=== PATIENT | male | born 1955 | race American Indian/Alaskan Native ===

== ENCOUNTER 2017-06-15 11:50 | Emergency (ER) | payer OTHER ==
[2017-06-15 13:19] LABS: Bacteria,Urine 1+ /HPF (Negative); Bilirubin,Urine NEG (Negative); Blood,Urine LG (Negative); Ketones,Urine NEG (Negative); Leukocyte Esterase,Urine NEG (Negative); Mucus,Urine FEW /HPF; Nitrite,Urine NEG (Negative); Protein,Urine <15 mg/dL mg/dL (Negative); Urobilinogen,Urine < 2.0 mg/dL (<2.0)
[2017-06-15 14:11] LABS: Basophils % (Auto) 0.5 % (0.0-1.8); Eosinophils % (Auto) 0.2 % (0.0-4.3); Hematocrit 47.1 % (35.5-45.6); Hemoglobin 15.2 gm/dl (11.8-15.2); Mean Corpuscular HGB Conc 32 % (32-34); Mean Corpuscular Hemoglobin 28 pg (28-32); Mean Corpuscular Volume 86 fl (84-94); Platelet Count 208 K/mm3 (140-440); Red Blood Count 5.51 M/mm3 (3.65-5.03); Red Cell Distribution Width 14.7 % (13.2-15.2); White Blood Count 15.5 K/mm3 (4.5-11.0)
--- NOTE | 2017-06-15 14:16 | Emergency Department Report ---
ED Male HPI - General Chief complaint: Abdominal Pain Stated complaint: ENLARGED PROSTATE Time Seen by Provider: 06/15/17 13:35 Source: patient, EMS Mode of arrival: Stretcher Limitations: No Limitations - History of Present Illness Initial comments: 61 year old male with a past medical history of enlarged prostate and hepatitis presents to the hospital with complaints of inability to urinate times a hours and superpubic abdominal pain. Similar history of urinary retention one year ago. Patient states he is compliant with his Flomax but took his last dose 6 hours late. Patient also states he is under a lot of stress lately and thinks that that has contributed to his retention. Patient's pain was 10/10 intensity described as a pressure prior to to my evaluation. Greene catheter was placed by RN with initial output of 1000 mL of urine. Patient now reports improvement in symptoms. In the past patient has been seen by Dr. Hawkins but his group no longer accepts his insurance - Related Data Home Medications Medication Instructions Recorded Confirmed Last Taken No Known Home Medications [No 07/03/16 07/03/16 Unknown Reported Home Medications] Allergies Allergy/AdvReac Type Severity Reaction Status Date / Time No Known Allergies Allergy Unverified 07/03/16 11:35 ED Review of Systems ROS: Stated complaint: ENLARGED PROSTATE Other details as noted in HPI Comment: All other systems reviewed and negative Other: Constitutional: No fevers chills Eyes: No eye pain visual changes ENT: No ear pain or throat pain Neck: Denies pain Respiratory: Denies cough wheezing shortness of breath Cardiovascular: Denies chest pain, palpitations, syncope GI: Denies nausea, vomiting, diarrhea : as per hpi Musculoskeletal: Denies back pain, joint swelling Skin: Denies rash, lesions, erythema Neurologic: Denies headache, numbness, weakness Psychiatric: Denies suicidal ideation, hallucinations ED Past Medical Hx - Past Medical History Previous Medical History?: Yes Additional medical history: Enlarged Prostate, Hepatitis - Surgical History Past Surgical History?: Yes Additional Surgical History: Right knee surgery,. Rectal/anal surgery performed by Dr. Pedraza in 2013 for "ingrown infected hair" - Social History Smoking Status: Never Smoker Substance Use Type: None - Medications Home Medications: Home Medications Medication Instructions Recorded Confirmed Last Taken Type No Known Home Medications [No 07/03/16 07/03/16 Unknown History Reported Home Medications] ED Physical Exam - General Limitations: No Limitations - Other Other exam information: General: No limitations, patient is alert in no acute distress Head exam: Atraumatic, normocephalic Eyes exam: Normal appearance ENT: Moist mucous membrane, normal oropharynx Neck exam: Normal inspection, full range of motion, no meningismus nontender Respiratory exam: Clear to auscultation bilateral, no wheezes, rales, crackles Cardiovascular: Normal rate and rhythm, normal heart sounds Abdomen: Soft, nondistended, and nontender (after greene placement), with normal bowel sounds, no rebound, or guarding : Circumcised, no penile testicular tenderness. Extremity: Full range of motion normal inspection no deformity Back: Normal Inspection, full range of motion, no tenderness Neurologic: Alert, oriented x3, cranial nerves intact, no motor or sensory deficit Psychiatric: normal affect, normal mood Skin: Warm, dry, intact ED Course Vital Signs 06/15/17 06/15/17 06/15/17 11:54 12:00 12:15 Temperature 97.9 F Pulse Rate 114 H Respiratory 19 Rate Blood Pressure 136/79 137/77 Blood Pressure [Left] O2 Sat by Pulse 97 99 98 Oximetry 06/15/17 06/15/17 12:30 12:51 Temperature Pulse Rate 82 Respiratory Rate Blood Pressure 137/77 Blood Pressure 153/76 [Left] O2 Sat by Pulse 97 Oximetry ED Medical Decision Making - Lab Data Result diagrams: 06/15/17 13:54 06/15/17 13:54 Lab Results 06/15/17 06/15/17 06/15/17 Range/Units 12:25 13:54 13:54 WBC 15.5 H (4.5-11.0) K/mm3 RBC 5.51 H (3.65-5.03) M/mm3 Hgb 15.2 (11.8-15.2) gm/dl Hct 47.1 H (35.5-45.6) % MCV 86 (84-94) fl MCH 28 (28-32) pg MCHC 32 (32-34) % RDW 14.7 (13.2-15.2) % Plt Count 208 (140-440) K/mm3 Lymph % (Auto) 5.7 L (13.4-35.0) % [place] % (Auto) 6.2 (0.0-7.3) % Eos % (Auto) 0.2 (0.0-4.3) % Baso % (Auto) 0.5 (0.0-1.8) % Lymph # 0.9 L (1.2-5.4) K/mm3 [place] # 1.0 H (0.0-0.8) K/mm3 Eos # 0.0 (0.0-0.4) K/mm3 Baso # 0.1 (0.0-0.1) K/mm3 Seg Neutrophils % 87.4 H (40.0-70.0) % Seg Neutrophils # 13.6 H (1.8-7.7) K/mm3 Sodium 138 (137-145) mmol/L Potassium 4.0 (3.6-5.0) mmol/L Chloride 99.8 (98-107) mmol/L Carbon Dioxide 24 (22-30) mmol/L Anion Gap 18 mmol/L BUN 8 L (9-20) mg/dL Creatinine 1.0 (0.8-1.5) mg/dL Estimated GFR > 60 ml/min BUN/Creatinine Ratio 8 % Glucose 90 (75-100) mg/dL Calcium 9.6 (8.4-10.2) mg/dL Urine Color Yellow (Yellow) Urine Turbidity Clear (Clear) Urine pH 5.0 (5.0-7.0) Ur Specific [place] 1.011 (1.003-1.030) Urine Protein <15 mg/dl (Negative) mg/dL Urine Glucose (UA) Neg (Negative) mg/dL Urine Ketones Neg (Negative) mg/dL Urine Blood Lg (Negative) Urine Nitrite Neg (Negative) Urine Bilirubin Neg (Negative) Urine Urobilinogen < 2.0 (<2.0) mg/dL Ur Leukocyte Esterase Neg (Negative) Urine WBC (Auto) 3.0 (0.0-6.0) /HPF Urine RBC (Auto) 109.0 (0.0-6.0) /HPF Urine Bacteria (Auto) 1+ (Negative) /HPF Hyaline Casts 1 /LPF Urine Mucus Few /HPF - Medical Decision Making UA negative for infection. Hematuria could be secondary to urine catheterization. Elevated leukocytosis and blood work could be secondary to stress reaction since no infection identified in the urine. Plan to discharge patient home with Greene and leg bag and urology. - Differential Diagnosis urine retention, UTI, prostate cancer, prostate hypertrophy Critical Care Time: No Critical care attestation.: If time is entered above; I have spent that time in minutes in the direct care of this critically ill patient, excluding procedure time. ED Disposition Clinical Impression: Urine retention, Prostate hypertrophy Disposition: - TO HOME OR SELFCARE Is pt being admited?: No Does the pt Need Aspirin: No Condition: Stable Instructions: Urinary Retention in Men (ED) Additional Instructions: Continue to wear your the Greene with leg until you are seen by a urologist. Follow up with your in network urologist or the urologist provided. Return if symptoms worsen. Continue our Flomax as prescribed. Referrals: ROBBY SARKAR MD [Staff Physician] - 2-3 Days Time of Disposition: 15:05
[2017-06-15 14:26] LABS: Anion Gap 18 mmol/L; BUN/Creatinine Ratio 8; Blood Urea Nitrogen 8 mg/dL (9-20); Calcium 9.6 mg/dL (8.4-10.2); Carbon Dioxide 24 mmol/L (22-30); Chloride 99.8 mmol/L (98-107); Glucose 90 mg/dL (75-100); Sodium 138 mmol/L (137-145)
[2017-06-15 15:22] VITALS: BP 130/87
== END 2017-06-15 15:21 | disposition home or self-care (01) ==
LOC: ED 11:50
DX: R33.9 Retention of urine, unspecified (principal); N40.0 Benign prostatic hyperplasia without lower urinary tract symptoms
CPT/HCPCS: 36415; 51702; 80048; 81001; 85025

== ENCOUNTER 2017-07-02 04:39 | Emergency (ER) | payer OTHER ==
[2017-07-02 06:18] LABS: Bilirubin,Urine NEG (Negative); Blood,Urine MOD (Negative); Ketones,Urine NEG (Negative); Leukocyte Esterase,Urine NEG (Negative); Nitrite,Urine NEG (Negative); Protein,Urine <15 mg/dL mg/dL (Negative); Urobilinogen,Urine < 2.0 mg/dL (<2.0); WBC,Urine < 1.0 /HPF (0.0-6.0)
== END 2017-07-02 06:00 | disposition left against medical advice (07) ==
LOC: ED 04:39
DX: R30.0 Dysuria (principal); Z53.21 Procedure and treatment not carried out due to patient leaving prior to being seen by health care provider
CPT/HCPCS: 81001

== ENCOUNTER 2017-07-09 17:01 | Emergency (ER) | payer OTHER ==
[2017-07-09 17:18] VITALS: BP 129/70
--- NOTE | 2017-07-09 17:46 | Emergency Department Report ---
Chief Complaint: Urogenital-Male Stated Complaint: MENENDEZ CATH CLOGGED Time Seen by Provider: 07/09/17 17:23 - HPI History of Present Illness: Patient is a 61-year-old [place] male whose presenting with leakage around his Menendez catheter. Patient states that Has been placed proximate 10 days. Patient states that he is able to void around the Menendez catheter patient states the catheter was placed because of urinary retention he's been taking Flomax and Bactrim since it's mainly it's been placed patient has no pain would like his catheter removed. - ROS Review of Systems: Review of systems negative except for those systems in the HPI - Exam Vital Signs: Vital Signs 07/09/17 07/09/17 17:13 17:28 Temperature 97.7 F Pulse Rate 75 Respiratory 18 18 Rate Blood Pressure 129/70 O2 Sat by Pulse 100 100 Oximetry Physical Exam: Focused physical exam patient has catheter in place has no abdominal pain to palpation normal genitals scrotum MSE screening note: Focused history and physical exam performed. Due to findings the following was ordered: Catheter will be removed and will monitor the patient to ensure that he is able to void on his ED Medical Decision Making - Medical Decision Making The patient's Menendez will be removed and we will watch the patient for brief that is sure he is able to void on his own and that we'll discharge him home ED Disposition for MSE Clinical Impression: Menendez catheter problem Disposition: DC-01 TO HOME OR SELFCARE Is pt being admited?: No Does the pt Need Aspirin: No Condition: Good Referrals: PRIMARY CARE, [Primary Care Provider] - 3-5 Days
== END 2017-07-09 19:02 | disposition home or self-care (01) ==
LOC: ED 17:01
DX: Z46.6 Encounter for fitting and adjustment of urinary device (principal)
CPT/HCPCS: 99283

== ENCOUNTER 2017-07-09 21:27 | Emergency (ER) | payer OTHER ==
--- NOTE | 2017-07-09 22:17 | Emergency Department Report ---
HPI - General Chief Complaint: Urogenital-Male Time Seen by Provider: 07/09/17 21:57 - HPI HPI: This is a 61 year-old male presents to the emergency department with complaint of some suprapubic pain and inability to urinate. The patient has history of BPH and has had multiple Chase's in the past for urinary retention. In fact the patient had one placed here about 10 days ago and was here earlier today with complaint that the Chase catheter was malfunctioning and that he was leaking some urine around the catheter. He had the Chase catheter removed and was discharged home. He says he got home and had one or 2 episodes where he was able to urinate after that he has been unable to do so and started having discomfort and the patient says "I know exactly what this is", in reference to urinary retention. His urologist is Dr. Lacy at [place]. ED Past Medical Hx - Past Medical History Additional medical history: Enlarged Prostate, Hepatitis-resolved - Surgical History Additional Surgical History: Right knee surgery,. Rectal/anal surgery performed by Dr. Pedraza in 2013 for "ingrown infected hair" - Social History Smoking Status: Never Smoker Substance Use Type: None - Medications Home Medications: Home Medications Medication Instructions Recorded Confirmed Last Taken Type No Known Home Medications [No 07/03/16 07/03/16 Unknown History Reported Home Medications] ED Review of Systems ROS: Stated complaint: PAIN WHEN URINE Other details as noted in HPI Comment: All other systems reviewed and negative Constitutional: denies: chills, fever Eyes: denies: eye pain, eye discharge, vision change ENT: denies: ear pain, throat pain Respiratory: denies: cough, shortness of breath, wheezing Cardiovascular: denies: chest pain, palpitations Gastrointestinal: abdominal pain. denies: nausea, vomiting Genitourinary: dysuria. denies: discharge Musculoskeletal: denies: back pain, joint swelling, arthralgia Skin: denies: rash, lesions Neurological: denies: headache, weakness, paresthesias Physical Exam - Physical Exam Vital Signs: Vital Signs 07/09/17 21:29 Temperature 98 F Pulse Rate 84 Blood Pressure 151/83 O2 Sat by Pulse 99 Oximetry Physical Exam: GENERAL: The patient is well-developed well-nourished. HENT: Normocephalic. Atraumatic. Patient has moist mucous membranes. EYES: Extraocular motions are intact. Pupils equal reactive to light bilaterally. NECK: Supple. Trachea is midline. CHEST/LUNGS: Clear to auscultation. There is no respiratory distress noted. HEART/CARDIOVASCULAR: Regular. There is no tachycardia. There is no murmur. ABDOMEN: Abdomen is soft, nontender. Patient has normal bowel sounds. There is no abdominal distention. SKIN: Skin is warm and dry. NEURO: The patient is awake, alert, and oriented. The patient is cooperative. The patient has no focal neurologic deficits. The patient has normal speech and gait. MUSCULOSKELETAL: There is no tenderness or deformity. There is no limitation range of motion. There is no evidence of acute injury. ED Course Vital Signs 07/09/17 21:29 Temperature 98 F Pulse Rate 84 Blood Pressure 151/83 O2 Sat by Pulse 99 Oximetry ED Medical Decision Making - Medical Decision Making The patient presents looking uncomfortable and attempting to urinate standing up in a urinal without any success. Otherwise the physical exam is grossly unremarkable. However a Chase catheter was then placed and the patient put out about 700 mL of urine and immediately started feeling much better. The urine was sent and there is no significant urinary tract infection. There is still 9 white blood cells in the urine but the patient is currently on Bactrim on a two- week course. Vital signs stable including being afebrile. He will be switched to a leg bag and en route he has an appointment with his urologist but has been encouraged to move up the appointment date to as soon as possible. - Differential Diagnosis BPH, malignancy, urethral stricture, UTI Critical Care Time: No Critical care attestation.: If time is entered above; I have spent that time in minutes in the direct care of this critically ill patient, excluding procedure time. ED Disposition Clinical Impression: Urinary retention, History of BPH Disposition: DC-01 TO HOME OR SELFCARE Is pt being admited?: No Condition: Stable Instructions: Urinary Retention in Men (ED), Urinary Leg Bag (GEN) Additional Instructions: Please follow-up with your urologist as soon as possible. Return to the emergency Department with any worsening of her symptoms, complications with the Chase catheter, or any acute distress. Referrals: PRIMARY CARE, [Primary Care Provider] - 3-5 Days Time of Disposition: 00:37
[2017-07-09 23:54] LABS: Bilirubin,Urine NEG (Negative); Blood,Urine LG (Negative); Ketones,Urine NEG (Negative); Leukocyte Esterase,Urine TR (Negative); Mucus,Urine FEW /HPF; Nitrite,Urine NEG (Negative); Urobilinogen,Urine < 2.0 mg/dL (<2.0)
[2017-07-09 23:56] LABS: RBC,Urine > 182.0 /HPF (0.0-6.0)
[2017-07-10 01:07] VITALS: BP 151/88
== END 2017-07-10 01:43 | disposition home or self-care (01) ==
LOC: ED 21:27
DX: R33.9 Retention of urine, unspecified (principal); N40.0 Benign prostatic hyperplasia without lower urinary tract symptoms
CPT/HCPCS: 51702; 81001; 99283

== ENCOUNTER 2017-08-16 13:39 | Emergency (ER) | payer OTHER ==
[2017-08-17] MEDS ORDERED: MOTRIN PO ONE ×3 (03:35→03:37)
--- NOTE | 2017-08-17 07:24 | Emergency Department Report ---
ED Male HPI - General Chief complaint: Urogenital-Male Stated complaint: ISSUES WITH MENENDEZ Source: patient Mode of arrival: Ambulatory Limitations: No Limitations - History of Present Illness Initial comments: Mr. Kirkland is a 61 year old male with hx of BPH requiring menendez catheter for the past 6 weeks. Today he presents with continued irritation and concern for UTI. He requests menendez catheter exchagne. He has been followed by his PCP Dr. Dominick Cook. Several recent ED visits in June for catheter problems. He is using antibiotic cream for irritation at insertion site. He finished 14 day course of Bactrim recently. He is taking tamsulosin. He has failed voiding trials at least twice. He has only minimal discomfort today. Gradual onset a few days ago. He has noticed sediment and specks of blood in the leg bag. - Related Data Home Medications Medication Instructions Recorded Confirmed Last Taken Mupirocin 1 applic TRANSDERMA PRN PRN 08/17/17 08/17/17 Unknown Tamsulosin [Flomax] 0.4 mg PO QDAY 08/17/17 08/17/17 Unknown Allergies Allergy/AdvReac Type Severity Reaction Status Date / Time No Known Allergies Allergy Verified 08/16/17 14:13 ED Review of Systems ROS: Stated complaint: ISSUES WITH MENENDEZ Other details as noted in HPI Comment: All other systems reviewed and negative Constitutional: denies: chills, fever, malaise Respiratory: denies: cough Cardiovascular: denies: chest pain Gastrointestinal: denies: abdominal pain ED Past Medical Hx - Past Medical History Hx Hypertension: No Hx CVA: No Hx Heart Attack/AMI: No Hx Congestive Heart Failure: No Hx Diabetes: No Additional medical history: Enlarged Prostate, Hepatitis-resolved - Surgical History Additional Surgical History: Right knee surgery,. Rectal/anal surgery performed by Dr. Pedraza in 2013 for "ingrown infected hair" - Family History Family history: other (noncontributory to today's) - Social History Smoking Status: Never Smoker Substance Use Type: None Other Social History: Patient is . 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 He lives with his . - Medications Home Medications: Home Medications Medication Instructions Recorded Confirmed Last Taken Type Mupirocin 1 applic TRANSDERMA PRN PRN 08/17/17 08/17/17 Unknown History Tamsulosin [Flomax] 0.4 mg PO QDAY 08/17/17 08/17/17 Unknown History ED Physical Exam - General Limitations: No Limitations General appearance: alert, in no apparent distress - Head Head exam: Present: atraumatic, normocephalic - Eye Eye exam: Present: normal appearance - ENT ENT exam: Present: mucous membranes moist - Neck Neck exam: Present: normal inspection - Respiratory Respiratory exam: Present: normal lung sounds bilaterally. Absent: respiratory distress - Cardiovascular Cardiovascular Exam: Present: regular rate, normal rhythm, normal heart sounds. Absent: systolic murmur, diastolic murmur, rubs, gallop - GI/Abdominal GI/Abdominal exam: Present: soft, normal bowel sounds. Absent: distended, tenderness, guarding, rebound - Rectal Rectal exam: Present: deferred - exam: Present: normal inspection, other (menendez catheter in place without discharge present). Absent: testicular tenderness, urethral discharge, scrotal swelling - Extremities Exam Extremities exam: Present: normal inspection. Absent: tenderness, pedal edema, joint swelling - Back Exam Back exam: Present: normal inspection - Neurological Exam Neurological exam: Present: alert, oriented X3 - Psychiatric Psychiatric exam: Present: normal affect, normal mood - Skin Skin exam: Present: warm, dry, intact, normal color. Absent: rash ED Course Vital Signs 08/16/17 08/17/17 08/17/17 14:14 02:12 07:00 Temperature 98.3 F 97.8 F Pulse Rate 70 76 77 Respiratory 16 18 18 Rate Blood Pressure 108/64 115/68 Blood Pressure 103/62 [Left] O2 Sat by Pulse 98 97 97 Oximetry 08/17/17 08/17/17 08/17/17 07:01 09:17 10:17 Temperature 97.8 F Pulse Rate 64 Respiratory 18 15 19 Rate Blood Pressure Blood Pressure 104/70 [Left] O2 Sat by Pulse 98 95 Oximetry 08/17/17 10:19 Temperature Pulse Rate 84 Respiratory 19 Rate Blood Pressure Blood Pressure 105/69 [Left] O2 Sat by Pulse Oximetry ED Medical Decision Making - Lab Data Laboratory Tests 08/17/17 11:30 Urine WBC (Auto) 27.0 H Urine RBC (Auto) > 182.0 Urine Mucus Few - Medical Decision Making Mr. Kirkland is a pleasant gentleman who presents with Menendez catheter irritation and concern for urinary tract infection. We exchanged a Menendez catheter here in the ED. Urinalysis sent from a freshly collected urine from new catheter. UTI not evident today. Will hold abx until culture results. dc'd home Critical care attestation.: If time is entered above; I have spent that time in minutes in the direct care of this critically ill patient, excluding procedure time. ED Disposition Clinical Impression: Menendez catheter problem, BPH (benign prostatic hyperplasia) Disposition: DC- TO HOME OR SELFCARE Is pt being admited?: No Does the pt Need Aspirin: No Condition: Good Instructions: Menendez Catheter Placement and Care (ED) Referrals: REID AVILES MD [Primary Care Provider] - 3-5 Days Forms: AMA Form Time of Disposition: 13:26
[2017-08-17 10:28] VITALS: BP 105/69
[2017-08-17 12:33] LABS: Mucus,Urine FEW /HPF
[2017-08-17 12:37] LABS: RBC,Urine > 182.0 /HPF (0.0-6.0)
== END 2017-08-17 13:30 | disposition home or self-care (01) ==
LOC: ED 13:39
DX: N40.0 Benign prostatic hyperplasia without lower urinary tract symptoms (principal)
CPT/HCPCS: 51702; 81015; 87086

== ENCOUNTER 2017-08-20 03:40 | Emergency (ER) | payer OTHER ==
[2017-08-20 05:21] VITALS: BP 137/80
--- NOTE | 2017-08-20 06:03 | Emergency Department Report ---
ED Male HPI - General Chief complaint: Urogenital-Male Stated complaint: BLOOD IN URINE Time Seen by Provider: 08/20/17 04:39 Source: patient, EMS Mode of arrival: Stretcher Limitations: No Limitations - History of Present Illness Initial comments: 61-year-old male with a past medical history of BPH and recurrent urinary obstruction presents to the Hospital of complaints of obstructive catheter. Patient has had a catheter replaced on the here in the ED. Patient noticed mild hematuria and decreased urinary output. Patient presents with 10/ 10 suprapubic abdominal pain. Patient is currently on Keflex empirically for his urine and Flomax. - Related Data Home Medications Medication Instructions Recorded Confirmed Last Taken Mupirocin 1 applic TRANSDERMA PRN PRN 08/17/17 08/17/17 Unknown Tamsulosin [Flomax] 0.4 mg PO QDAY 08/17/17 08/17/17 Unknown Previous Rx's Medication Instructions Recorded Last Taken Type Cephalexin [Keflex] 500 mg PO Q6HR 10 Days capsule 08/17/17 Unknown Rx Allergies Allergy/AdvReac Type Severity Reaction Status Date / Time No Known Allergies Allergy Verified 08/16/17 14:13 ED Review of Systems ROS: Stated complaint: BLOOD IN URINE Other details as noted in HPI Comment: All other systems reviewed and negative Other: Constitutional: No fevers chills Eyes: No eye pain visual changes ENT: No ear pain or throat pain Neck: Denies pain Respiratory: Denies cough wheezing shortness of breath Cardiovascular: Denies chest pain, palpitations, syncope GI: Denies abdominal pain, nausea, vomiting, diarrhea : as per hpi Musculoskeletal: Denies back pain Skin: Denies rash, lesions, erythema Neurologic: Denies headache, numbness, weakness Psychiatric: Denies suicidal ideation, hallucinations ED Past Medical Hx - Past Medical History Hx Hypertension: No Hx CVA: No Hx Heart Attack/AMI: No Hx Congestive Heart Failure: No Hx Diabetes: No Additional medical history: Enlarged Prostate, Hepatitis-resolved - Surgical History Additional Surgical History: Right knee surgery,. Rectal/anal surgery performed by Dr. Pedraza in 2013 for "ingrown infected hair" - Social History Smoking Status: Never Smoker Substance Use Type: None - Medications Home Medications: Home Medications Medication Instructions Recorded Confirmed Last Taken Type Cephalexin [Keflex] 500 mg PO Q6HR 10 Days capsule 08/17/17 Unknown Rx Mupirocin 1 applic TRANSDERMA PRN PRN 08/17/17 08/17/17 Unknown History Tamsulosin [Flomax] 0.4 mg PO QDAY 08/17/17 08/17/17 Unknown History ED Physical Exam - General Limitations: No Limitations - Other Other exam information: General: No limitations, patient is alert in no acute distress Head exam: Atraumatic, normocephalic Eyes exam: Normal appearance ENT: Moist mucous membrane Neck exam: Normal inspection, full range of motion, no meningismus nontender Respiratory exam: Clear to auscultation bilateral, no wheezes, rales, crackles Cardiovascular: Normal rate and rhythm, normal heart sounds Abdomen: Soft, nondistended, and nontender, with normal bowel sounds, no rebound, or guarding (after urine cath placed) Extremity: Full range of motion normal inspection no deformity Back: Normal Inspection, full range of motion, no tenderness Neurologic: Alert, oriented x3, cranial nerves intact, no motor or sensory deficit Psychiatric: normal affect, normal mood Skin: Warm, dry, intact ED Course Vital Signs 08/20/17 08/20/17 04:10 05:16 Temperature 97.9 F Pulse Rate 109 H 88 Respiratory 20 18 Rate Blood Pressure 164/99 137/80 O2 Sat by Pulse 97 97 Oximetry - Reevaluation(s) Reevaluation #1: 08/20/17 06:08 pain improved after cath ED Medical Decision Making - Medical Decision Making Catheter placed in the EDwith return of several 100 mL of urine. Patient has relief. Patient currently on antibiotics and recent negative UA. Will be discharged to follow up with urologist. Patient has an appointment for September 08 with a urologist at [place] for first visit. He states this provided was provided by his insurance company in the group does not take his insurance. Patient encouraged to call his insurance for other alternative urologist for possible earlier appointment. - Differential Diagnosis BPH, urinary obstruction Critical Care Time: No Critical care attestation.: If time is entered above; I have spent that time in minutes in the direct care of this critically ill patient, excluding procedure time. ED Disposition Clinical Impression: Obstructed Chase catheter Disposition: DC- TO HOME OR SELFCARE Is pt being admited?: No Does the pt Need Aspirin: No Condition: Stable Instructions: Urinary Retention in Men (ED), Chase Catheter Placement and Care (ED) Additional Instructions: Follow-up with urologist. Call your insurance company to see if you can find a urologist for an earlier appointment. Return if symptoms worsen. Referrals: your, urologist [Other] - 3-5 Days Time of Disposition: 06:10
== END 2017-08-20 06:22 | disposition home or self-care (01) ==
LOC: ED 03:40
DX: T83.098A Other mechanical complication of other urinary catheter, initial encounter (principal); Y92.89 Other specified places as the place of occurrence of the external cause
CPT/HCPCS: 51702

== ENCOUNTER 2017-10-17 16:48 | Emergency (ER) | payer OTHER ==
[2017-10-17 17:10] VITALS: BP 128/89
== END 2017-10-17 19:00 | disposition left against medical advice (07) ==
LOC: ED 16:48
DX: T83.038A Leakage of other urinary catheter, initial encounter (principal); Z53.21 Procedure and treatment not carried out due to patient leaving prior to being seen by health care provider

== ENCOUNTER 2017-10-27 21:55 | Emergency (ER) | payer OTHER ==
[2017-10-27 22:16] VITALS: BP 133/67
[2017-10-27] MEDS ORDERED: DILAUDID IV ONE (22:24)
[2017-10-27] MEDS ORDERED: ZOFRAN IV ONE (22:24)
[2017-10-27 22:54] LABS: Basophils # (Auto) 0.1 K/mm3 (0.0-0.1); Basophils % (Auto) 1.1 % (0.0-1.8); Eosinophils # (Auto) 0.4 K/mm3 (0.0-0.4); Eosinophils % (Auto) 4.9 % (0.0-4.3); Hematocrit 42.8 % (35.5-45.6); Hemoglobin 13.7 gm/dl (11.8-15.2); Lymphocytes # (Auto) 1.7 K/mm3 (1.2-5.4); Lymphocytes % (Auto) 23.3 % (13.4-35.0); Mean Corpuscular HGB Conc 32 % (32-34); Mean Corpuscular Hemoglobin 27 pg (28-32); Mean Corpuscular Volume 86 fl (84-94); Monocytes # (Auto) 0.6 K/mm3 (0.0-0.8); Platelet Count 243 K/mm3 (140-440)
[2017-10-27] MEDS ORDERED: PERCOCET 5/325 PO ONE (22:54)
[2017-10-27 23:08] LABS: Alanine Aminotransferase 34 units/L (7-56); Albumin 3.9 g/dL (3.9-5); BUN/Creatinine Ratio 11; Blood Urea Nitrogen 15 mg/dL (9-20); Calcium 8.7 mg/dL (8.4-10.2); Hemolysis Index 8
[2017-10-27 23:30] LABS: Bilirubin,Urine NEG (Negative); Blood,Urine LG (Negative); Color,Urine Yellow (Yellow); Mucus,Urine FEW /HPF; Urobilinogen,Urine < 2.0 mg/dL (<2.0)
[2017-10-27 23:36] LABS: RBC,Urine > 182.0 /HPF (0.0-6.0)
--- NOTE | 2017-10-28 | Emergency Department Report ---
ED Male HPI - General Chief complaint: Urogenital-Male Stated complaint: BLEEDING FROM PENIS/CANT URINATE Time Seen by Provider: 10/27/17 22:19 Source: patient, old records reviewed Mode of arrival: Ambulatory Limitations: No Limitations - History of Present Illness Initial comments: 61-year-old male with a past medical history of enlarged prostate and recurrent episodes of urinary retention presents to the hospital complaining of urinary retention. Patient had a TURP or seizure performed by his urologist on 2017 as well as a biopsy. Chase catheter was removed today. Patient states he has not been able to urinate for 8 hours. He complains of 10/10 penile and suprapubic abdominal pain. Worse with palpation. No alleviating factors. He is currently taking Bactrim. His urologist is affiliated with [facility] [place] [facility] Dr. Aaron Loza - Related Data Home Medications Medication Instructions Recorded Confirmed Last Taken Mupirocin 1 applic TRANSDERMA PRN PRN 08/17/17 08/17/17 Unknown Tamsulosin [Flomax] 0.4 mg PO QDAY 08/17/17 08/17/17 Unknown Previous Rx's Medication Instructions Recorded Last Taken Type Cephalexin [Keflex] 500 mg PO Q6HR 10 Days capsule 08/17/17 Unknown Rx Allergies Allergy/AdvReac Type Severity Reaction Status Date / Time No Known Allergies Allergy Verified 08/16/17 14:13 ED Review of Systems ROS: Stated complaint: BLEEDING FROM PENIS/CANT URINATE Other details as noted in HPI Comment: All other systems reviewed and negative ED Past Medical Hx - Past Medical History Previous Medical History?: Yes Hx Hypertension: No Hx CVA: No Hx Heart Attack/AMI: No Hx Congestive Heart Failure: No Hx Diabetes: No Additional medical history: Enlarged Prostate, Hepatitis-resolved - Surgical History Past Surgical History?: Yes Additional Surgical History: Right knee surgery,. Rectal/anal surgery performed by Dr. Pedraza in 2013 for "ingrown infected hair" - Social History Smoking Status: Never Smoker Substance Use Type: None - Medications Home Medications: Home Medications Medication Instructions Recorded Confirmed Last Taken Type Cephalexin [Keflex] 500 mg PO Q6HR 10 Days capsule 08/17/17 Unknown Rx Mupirocin 1 applic TRANSDERMA PRN PRN 08/17/17 08/17/17 Unknown History Tamsulosin [Flomax] 0.4 mg PO QDAY 08/17/17 08/17/17 Unknown History ED Physical Exam - General Limitations: No Limitations - Other Other exam information: General: No limitations, moderate distress Head exam: Atraumatic, normocephalic Eyes exam: Normal appearance ENT: Moist mucous membrane, normal oropharynx Neck exam: Normal inspection, full range of motion, no meningismus nontender Respiratory exam: Clear to auscultation bilateral, no wheezes, rales, crackles Cardiovascular: Normal rate and rhythm, normal heart sounds Abdomen: Soft, nondistended, suprapubic tenderness, with normal bowel sounds, no rebound, or guarding : Tenderness to the penis without gross abnormality Extremity: Full range of motion normal inspection no deformity Back: Normal Inspection, full range of motion, no tenderness Neurologic: Alert, oriented x3, cranial nerves intact, no motor or sensory deficit Skin: Warm, dry, intact ED Course Vital Signs 10/27/17 10/27/17 22:13 23:05 Temperature 97.8 F Pulse Rate 81 Respiratory 18 18 Rate Blood Pressure 133/67 O2 Sat by Pulse 99 Oximetry - Reevaluation(s) Reevaluation #1: 10/27/17 23:59 nurse reports that Chase was placed without difficulty. Immediate drainage of 400 mL of urine without signs of gross hematuria or clots. ED Medical Decision Making - Lab Data Result diagrams: 10/27/17 22:41 10/27/17 22:41 Lab Results 10/27/17 10/27/17 10/27/17 Range/Units 22:41 22:41 22:57 WBC 7.5 (4.5-11.0) K/mm3 RBC 5.00 (3.65-5.03) M/mm3 Hgb 13.7 (11.8-15.2) gm/dl Hct 42.8 (35.5-45.6) % MCV 86 (84-94) fl MCH 27 L (28-32) pg MCHC 32 (32-34) % RDW 15.0 (13.2-15.2) % Plt Count 243 (140-440) K/mm3 Lymph % (Auto) 23.3 (13.4-35.0) % Mitchell % (Auto) 8.0 H (0.0-7.3) % Eos % (Auto) 4.9 H (0.0-4.3) % Baso % (Auto) 1.1 (0.0-1.8) % Lymph # 1.7 (1.2-5.4) K/mm3 Mitchell # 0.6 (0.0-0.8) K/mm3 Eos # 0.4 (0.0-0.4) K/mm3 Baso # 0.1 (0.0-0.1) K/mm3 Seg Neutrophils % 62.7 (40.0-70.0) % Seg Neutrophils # 4.7 (1.8-7.7) K/mm3 Sodium 141 (137-145) mmol/L Potassium 4.7 (3.6-5.0) mmol/L Chloride 102.4 (98-107) mmol/L Carbon Dioxide 25 (22-30) mmol/L Anion Gap 18 mmol/L BUN 15 (9-20) mg/dL Creatinine 1.4 (0.8-1.5) mg/dL Estimated GFR > 60 ml/min BUN/Creatinine Ratio 11 % Glucose 118 H (75-100) mg/dL Calcium 8.7 (8.4-10.2) mg/dL Total Bilirubin < 0.20 (0.1-1.2) mg/dL AST 20 (5-40) units/L ALT 34 (7-56) units/L Alkaline Phosphatase 83 (35-129) units/L Total Protein 6.2 L (6.3-8.2) g/dL Albumin 3.9 (3.9-5) g/dL Albumin/Globulin Ratio 1.7 % Urine Color Yellow (Yellow) Urine Turbidity Hazy (Clear) Urine pH 6.0 (5.0-7.0) Ur Specific [place] 1.024 (1.003-1.030) Urine Protein 100 mg/dl (Negative) mg/dL Urine Glucose (UA) Neg (Negative) mg/dL Urine Ketones Neg (Negative) mg/dL Urine Blood Lg (Negative) Urine Nitrite Neg (Negative) Urine Bilirubin Neg (Negative) Urine Urobilinogen < 2.0 (<2.0) mg/dL Ur Leukocyte Esterase Tr (Negative) Urine WBC (Auto) 13.0 H (0.0-6.0) /HPF Urine RBC (Auto) > 182.0 (0.0-6.0) /HPF U Epithel Cells (Auto) < 1.0 (0-13.0) /HPF Urine Mucus Few /HPF - Medical Decision Making Patient have recurrent urinary retention after Chase removal earlier today. Urine suggestive of infection and the patient is currently on Bactrim. No signs of sepsis. Positive relief in discomfort after Chase placement. Patient be discharged with Chase and to follow-up with his urologist. - Differential Diagnosis urinary retention, BPH, prostate cancer, UTI Critical Care Time: No Critical care attestation.: If time is entered above; I have spent that time in minutes in the direct care of this critically ill patient, excluding procedure time. ED Disposition Clinical Impression: Urine retention, BPH (benign prostatic hyperplasia), UTI (urinary tract infection) Disposition: TO HOME OR SELFCARE Is pt being admited?: No Does the pt Need Aspirin: No Condition: Stable Instructions: Urinary Retention in Men (ED), Urinary Leg Bag (GEN), Chase Catheter Placement and Care (ED) Additional Instructions: You were discharged with Chase placed. Follow-up with your urologist for further treatment. Continue your current medication including your antibiotic. Referrals: Aaron Loza MD [Other] - 3-5 Days (urologist) Time of Disposition: 00:01
== END 2017-10-28 00:36 | disposition home or self-care (01) ==
LOC: ED 21:55
DX: N40.1 Benign prostatic hyperplasia with lower urinary tract symptoms (principal); R33.8 Other retention of urine; N39.0 Urinary tract infection, site not specified
CPT/HCPCS: 36415; 51702; 80053; 81001; 85025; 87086

== ENCOUNTER 2017-11-25 11:41 | Emergency (ER) | payer OTHER ==
--- NOTE | 2017-11-25 12:01 | Emergency Department Report ---
HPI - General Time Seen by Provider: 11/25/17 11:48 - HPI HPI: Room 8 The patient is a 61-year-old male presenting with chief complaint urinary retention. The patient has a history of BPH states he is status post TURP 10/[address] Loza. The patient states his catheter stopped draining after 06:00 this morning has had increasing thirst and urination in addition to bladder spasms beginning 08:30. Patient complains of significant pain. Patient states he contacted his urologist who when turn told him to come to the ED. ED Past Medical Hx - Past Medical History Additional medical history: Enlarged Prostate, Hepatitis-resolved - Surgical History Additional Surgical History: Right knee surgery,. Rectal/anal surgery performed by Dr. Pedraza in 2012 for "ingrown infected hair" - Family History Family history: no significant - Social History Smoking Status: Never Smoker Substance Use Type: None - Medications Home Medications: Home Medications Medication Instructions Recorded Confirmed Last Taken Type Cephalexin [Keflex] 500 mg PO Q6HR 10 Days capsule 08/17/17 Unknown Rx Mupirocin 1 applic TRANSDERMA PRN PRN 08/17/17 08/17/17 Unknown History Tamsulosin [Flomax] 0.4 mg PO QDAY 08/17/17 08/17/17 Unknown History Ciprofloxacin HCl [Ciprofloxacin 500 mg PO Q12H #20 tab 11/25/17 Unknown Rx TAB] ED Review of Systems ROS: Stated complaint: ABDOMINAL PAIN Other details as noted in HPI Gastrointestinal: abdominal pain Genitourinary: other (urinary retention) Physical Exam - Physical Exam Physical Exam: GENERAL: The patient is well-developed well-nourished male standing in room appearing to be in moderate discomfort. [] HEENT: Normocephalic. Atraumatic. Extraocular motions are intact. Patient has moist mucous membranes. NECK: Supple. Trachea midline CHEST/LUNGS: Clear to auscultation. There is no respiratory distress noted. HEART/CARDIOVASCULAR: Regular. There is no tachycardia. There is no gallop rub or murmur. ABDOMEN: Patient complains of severe discomfort in the suprapubic region. Patient has normal bowel sounds. There is no abdominal distention. SKIN: There is no rash. There is no edema. There is no diaphoresis. NEURO: The patient is awake, alert, and oriented. The patient is cooperative. The patient has normal speech MUSCULOSKELETAL:There is no evidence of acute injury. ED Course - Consultations Consultation #1: 11/25/17 11:55 Case discussed briefly with Dr. Graham- states it is okay to remove Chase catheter and replace with fresh catheter ED Medical Decision Making - Lab Data Laboratory Tests 11/25/17 12:21 Urine Color Red Urine Turbidity Turbid Urine pH 5.0 Ur Specific [place] 1.024 Urine Protein 30 mg/dl Urine Glucose (UA) 50 Urine Ketones 20 Urine Blood Mod Urine Nitrite Neg Urine Bilirubin Neg Urine Urobilinogen < 2.0 Ur Leukocyte Esterase Neg Urine WBC (Auto) > 182.0 H Urine RBC (Auto) > 182.0 Urine WBC Clumps Not Reportable - Differential Diagnosis urinary retention, UTI Critical care attestation.: If time is entered above; I have spent that time in minutes in the direct care of this critically ill patient, excluding procedure time. ED Disposition Clinical Impression: Urinary retention, Acute abdominal pain, UTI (urinary tract infection) Disposition: DC-01 TO HOME OR SELFCARE Is pt being admited?: No Does the pt Need Aspirin: No Condition: Stable Instructions: Urinary Retention in Men (ED) Additional Instructions: Return to the emergency department immediately should you develop worsening symptoms, fever, inability to tolerate food or liquid or any other concerns. Prescriptions: Ciprofloxacin HCl [Ciprofloxacin TAB] 500 mg PO Q12H #20 tab Referrals: Dr Garham, Your Urologist [Other] - 3-5 Days Time of Disposition: 12:56
[2017-11-25 12:13] VITALS: BP 139/84
[2017-11-25 12:31] LABS: Bilirubin,Urine NEG (Negative); Blood,Urine MOD (Negative); Color,Urine Red (Yellow); Urobilinogen,Urine < 2.0 mg/dL (<2.0)
[2017-11-25 12:42] LABS: RBC,Urine > 182.0 /HPF (0.0-6.0); WBC,Urine > 182.0 /HPF (0.0-6.0)
== END 2017-11-25 14:13 | disposition home or self-care (01) ==
LOC: ED 11:41
DX: N39.0 Urinary tract infection, site not specified (principal); R33.9 Retention of urine, unspecified; R10.9 Unspecified abdominal pain
CPT/HCPCS: 51702; 81001

== ENCOUNTER 2017-11-28 19:53 | Emergency (ER) | payer OTHER ==
[2017-11-28 20:01] VITALS: BP 140/103
--- NOTE | 2017-11-28 21:19 | Emergency Department Report ---
HPI - General Chief Complaint: Urogenital-Male Time Seen by Provider: 11/28/17 21:12 - HPI HPI: 61-year-old male presents to the emergency department with complaint of urinary retention. He presents with a Chase catheter in place attached to a leg bag. He says that he had the same problem 3 days ago and came to the emergency department at that time and had a Chase catheter replaced. He has a history of having a TURP procedure done in September. His urologist is Dr. Barron. He denies any fever, nausea, vomiting but does have some lower abdominal and suprapubic discomfort since he says he has not been able to urinate for the past 5 hours. ED Past Medical Hx - Past Medical History Previous Medical History?: Yes Hx Hypertension: No Hx CVA: No Hx Heart Attack/AMI: No Hx Congestive Heart Failure: No Hx Diabetes: No Additional medical history: Enlarged Prostate, Hepatitis-resolved - Surgical History Past Surgical History?: Yes Additional Surgical History: Right knee surgery,. Rectal/anal surgery performed by Dr. Pedraza in 2013 for "ingrown infected hair" - Social History Smoking Status: Never Smoker Substance Use Type: None - Medications Home Medications: Home Medications Medication Instructions Recorded Confirmed Last Taken Type Cephalexin [Keflex] 500 mg PO Q6HR 10 Days capsule 08/17/17 Unknown Rx Mupirocin 1 applic TRANSDERMA PRN PRN 08/17/17 08/17/17 Unknown History Tamsulosin [Flomax] 0.4 mg PO QDAY 08/17/17 08/17/17 Unknown History Ciprofloxacin HCl [Ciprofloxacin 500 mg PO Q12H #20 tab 11/25/17 Unknown Rx TAB] ED Review of Systems ROS: Stated complaint: URINARY RETANTION Other details as noted in HPI Comment: All other systems reviewed and negative Constitutional: denies: chills, fever Eyes: denies: eye pain, eye discharge, vision change ENT: denies: ear pain, throat pain Respiratory: denies: cough, shortness of breath, wheezing Cardiovascular: denies: chest pain, palpitations Gastrointestinal: abdominal pain. denies: vomiting Genitourinary: dysuria. denies: discharge Musculoskeletal: denies: back pain, joint swelling, arthralgia Skin: denies: rash, lesions Neurological: denies: headache, weakness, paresthesias Physical Exam - Physical Exam Vital Signs: Vital Signs 11/28/17 11/28/17 19:54 20:00 Temperature 98.0 F 98.0 F Pulse Rate 114 H 91 H Respiratory 18 20 Rate Blood Pressure 140/103 140/103 O2 Sat by Pulse 97 97 Oximetry ED Course Vital Signs 11/28/17 11/28/17 19:54 20:00 Temperature 98.0 F 98.0 F Pulse Rate 114 H 91 H Respiratory 18 20 Rate Blood Pressure 140/103 140/103 O2 Sat by Pulse 97 97 Oximetry Critical care attestation.: If time is entered above; I have spent that time in minutes in the direct care of this critically ill patient, excluding procedure time. ED Disposition Clinical Impression: Urinary retention Hematuria Qualifiers: Hematuria type: gross Qualified Code(s): R31.0 - Gross hematuria Disposition: TO HOME OR SELFCARE Is pt being admited?: No Condition: Stable Instructions: Urinary Retention in Men (ED), Urinary Leg Bag (GEN) Additional Instructions: Please follow-up with your urologist tomorrow. Return to the emergency department with any worsening of your symptoms or any acute distress. Continue taking your antibiotics. Referrals: Urologist, Your [Other] - [facility] Time of Disposition: 22:30
== END 2017-11-28 23:15 | disposition home or self-care (01) ==
LOC: ED 19:53
DX: R33.9 Retention of urine, unspecified (principal); R31.0 Gross hematuria
CPT/HCPCS: 99282

== ENCOUNTER 2017-11-29 05:02 | Emergency (ER) | payer OTHER ==
[2017-11-29] MEDS ORDERED: NACL 0.9% 500 ML IR ONE (06:12)
--- NOTE | 2017-11-29 06:30 | Emergency Department Report ---
ED Male HPI - General Chief complaint: Urogenital-Male Stated complaint: URINARY RETENTION Time Seen by Provider: 11/29/17 06:29 Source: patient, RN notes reviewed, old records reviewed Mode of arrival: Ambulatory Limitations: No Limitations - History of Present Illness Initial comments: This is a 61-year-old male who was previously on known to this provider status post recent prostate surgery on 10/22/[address] Aguilar at [facility]. Patient presents to the ER with inability to void, Chase catheter. Patient has had multiple visits for this condition while in this emergency department. Prior to my evaluation on an earlier visit the patient's Chase catheter was changed completely. The ER, the patient's Chase catheter was irrigated with 500 mL of sterile saline and clot extraction. This resolved the patient's symptoms and obstruction. He currently has no neck pain, chest pain, abdominal pain, shortness of breath or testicular pain. He reports is going to follow up with his urology specialist later on this week. MD Complaint: other -: Sudden Radiation: none Severity: severe Quality: aching, burning Consistency: now resolved, other (symptoms were resolved with irrigation of Chase Catheter and clot removal.) Improves with: other (as per history of present illness) Worsens with: other (attempting to urinate prior to irrigation) recent surgery urinary retention, blood in urine. denies: discharge, swelling, mass, rash, dysuria, fever, nausea/vomiting, incontinence - Related Data Home Medications Medication Instructions Recorded Confirmed Last Taken Mupirocin 1 applic TRANSDERMA PRN PRN 08/17/17 08/17/17 Unknown Tamsulosin [Flomax] 0.4 mg PO QDAY 08/17/17 08/17/17 Unknown Previous Rx's Medication Instructions Recorded Last Taken Type Cephalexin [Keflex] 500 mg PO Q6HR 10 Days capsule 08/17/17 Unknown Rx Ciprofloxacin HCl [Ciprofloxacin 500 mg PO Q12H #20 tab 11/25/17 Unknown Rx TAB] Allergies Allergy/AdvReac Type Severity Reaction Status Date / Time No Known Allergies Allergy Verified 08/16/17 14:13 ED Review of Systems ROS: Stated complaint: URINARY RETENTION Other details as noted in HPI Comment: All other systems reviewed and negative ED Past Medical Hx - Past Medical History Previous Medical History?: Yes Hx Hypertension: No Hx CVA: No Hx Heart Attack/AMI: No Hx Congestive Heart Failure: No Hx Diabetes: No Additional medical history: Enlarged Prostate, Hepatitis-resolved - Surgical History Past Surgical History?: Yes Additional Surgical History: Right knee surgery,. Rectal/anal surgery performed by Dr. Pedraza in 2013 for "ingrown infected hair" - Social History Smoking Status: Never Smoker Substance Use Type: None - Medications Home Medications: Home Medications Medication Instructions Recorded Confirmed Last Taken Type Cephalexin [Keflex] 500 mg PO Q6HR 10 Days capsule 08/17/17 Unknown Rx Mupirocin 1 applic TRANSDERMA PRN PRN 08/17/17 08/17/17 Unknown History Tamsulosin [Flomax] 0.4 mg PO QDAY 08/17/17 08/17/17 Unknown History Ciprofloxacin HCl [Ciprofloxacin 500 mg PO Q12H #20 tab 11/25/17 Unknown Rx TAB] ED Physical Exam - General Limitations: No Limitations General appearance: alert, in no apparent distress - Head Head exam: Present: atraumatic, normocephalic - Eye Eye exam: Present: normal appearance, EOMI. Absent: nystagmus - ENT ENT exam: Present: normal exam, normal orophraynx, mucous membranes moist, normal external ear exam - Neck Neck exam: Present: normal inspection, full ROM - Respiratory Respiratory exam: Present: normal lung sounds bilaterally. Absent: respiratory distress - Cardiovascular Cardiovascular Exam: Present: regular rate, normal rhythm, normal heart sounds. Absent: systolic murmur, diastolic murmur, rubs, gallop - GI/Abdominal GI/Abdominal exam: Present: soft, normal bowel sounds. Absent: distended, tenderness, guarding, rebound, rigid - Rectal Rectal exam: Present: deferred - exam: Present: normal inspection External exam: Present: normal external exam, other (Chase catheter is now draining clear urine with a few flecks of blood in it.) - Extremities Exam Extremities exam: Present: normal inspection, full ROM, normal capillary refill. Absent: pedal edema, joint swelling, calf tenderness - Back Exam Back exam: Present: normal inspection, full ROM. Absent: tenderness, CVA tenderness (R), paraspinal tenderness, vertebral tenderness - Neurological Exam Neurological exam: Present: alert, oriented X3, CN II-XII intact, normal gait, other (Extraocular movements intact. Tongue midline. No facial droop. Facial sensation intact to light touch in the V1, V2, V3 distribution bilaterally. 5 and 5 strength in 4 extremities.. Sensation is intact to light touch in 4 extremities.). Absent: motor sensory deficit - Psychiatric Psychiatric exam: Present: normal affect, normal mood - Skin Skin exam: Present: warm, dry, intact, normal color. Absent: rash ED Course Vital Signs 11/29/17 05:18 Temperature 97.6 F Pulse Rate 95 H Respiratory 20 Rate Blood Pressure 140/90 O2 Sat by Pulse 97 Oximetry ED Medical Decision Making - Lab Data Vital Signs 11/29/17 05:18 Temperature 97.6 F Pulse Rate 95 H Respiratory 20 Rate Blood Pressure 140/90 O2 Sat by Pulse 97 Oximetry - Medical Decision Making Differential diagnosis, including but not limited to: Urinary obstruction, bladder clot, Chase catheter malfunction Assessment and plan: 61-year-old male with resolved urinary retention. His symptoms were resolved with irrigation of a Chase catheter. Recent urine culture was negative. He has follow-up with his urology specialist later on this week. He has a [address] [place] [address] catheter in place now. His urologist can upsize if they feel like it is appropriate or necessary. Patient was instructed to continue current outpatient medicines and follow-up with his urology specialist. Critical care attestation.: If time is entered above; I have spent that time in minutes in the direct care of this critically ill patient, excluding procedure time. ED Disposition Clinical Impression: Urinary retention Disposition: DC-01 TO HOME OR SELFCARE Is pt being admited?: No Does the pt Need Aspirin: No Condition: Stable Instructions: Urinary Retention in Men (ED) Additional Instructions: Continue current outpatient medications. Follow-up with urology specialist within the next 3-5 days. Address: [address] [place] [address] [id number] [address] Hours: Closed Opens 9AM Return to the ER right away with new pain, worsened pain, migration of pain, fevers, chills, lethargy, irritability, projectile vomiting, change in mental status, confusion, inability to tolerate liquid feeds. Referrals: PRIMARY CAREMD [Primary Care Provider] - 3-5 Days [facility] [Provider Group] - 3-5 Days
[2017-11-29 08:02] VITALS: BP 133/80
== END 2017-11-29 08:34 | disposition home or self-care (01) ==
LOC: ED 05:02
DX: R33.9 Retention of urine, unspecified (principal)
CPT/HCPCS: 51702

== ENCOUNTER 2018-03-09 00:14 | Emergency (ER) | payer OTHER ==
[2018-03-09 00:29] VITALS: BP 206/99
== END 2018-03-09 02:05 | disposition left against medical advice (07) ==
LOC: ED 00:14
DX: R82.99 Other abnormal findings in urine (principal); Z53.21 Procedure and treatment not carried out due to patient leaving prior to being seen by health care provider